=== PATIENT | male | born 1965 | race American Indian/Alaskan Native ===

== ENCOUNTER 2022-03-08 13:38 | Emergency (ER) | payer BC, OTHER ==
[2022-03-08] MEDS ORDERED: valACYclovir 1,000 MG Tab PO ONE (15:34)
[2022-03-08] MEDS ORDERED: Gabapentin 100 MG Cap PO ONE (15:34)
== END 2022-03-08 16:05 | disposition home or self-care (01) ==
LOC: JD.ED 13:38
DX: B02.9 Zoster without complications (principal); Z88.0 Allergy status to penicillin
CPT/HCPCS: 99282; A9270